=== PATIENT | male | born 1965 | race Caucasian/White ===

== ENCOUNTER 2018-03-16 16:36 | Outpatient (REF) | payer MEDICAID, SELFPAY ==
[2018-03-16 18:40] LABS: HCT 43.9 % (40.0-50.0); HGB 14.9 g/dL (13.5-17.5); Mean Corp. HGB Concentration 33.9 g/dL (32.0-36.0); Mean Corpuscular Hemoglobin 31.7 pg (27.0-33.0); Mean Corpuscular Volume 93.4 fL (80-95); Mean Platelet Volume 11.3 fL (8.0-11.0); Platelet Count 184 x1000/uL (130-400); RBC Distribution Width 13.9 % (11.8-14.1)
[2018-03-16 18:51] LABS: ALT 22 U/L (12-78); AST 33 U/L (15-37); Albumin 3.7 g/dL (3.4-5.0); Alkaline Phosphatase 68 U/L (46-116); Anion Gap 9.1 mmol/L (3-11); BUN 19 mg/dL (7-18); Bilirubin, Total 0.3 mg/dL (0.2-1.0); CO2 26.9 mmol/L (21.0-32.0); CREATININE 1.25 mg/dL (0.70-1.30); Calcium 8.9 mg/dL (8.5-10.1); Chloride 101 mmol/L (98-107); Glucose 116 mg/dL (70-100); Potassium 3.9 mmol/L (3.5-5.1); Sodium 137 mmol/L (136-145); Total Protein 7.2 g/dL (6.4-8.2)
== END 2018-03-16 16:37 ==
LOC: NCHCN 16:36
PROVIDERS: PCP Physician Assistant; Visit Provider Physician Assistant Medical
DX: F10.10 Alcohol abuse, uncomplicated (principal); G93.9 Disorder of brain, unspecified; H53.2 Diplopia
CPT/HCPCS: 80053; 85027

== ENCOUNTER 2018-04-15 15:57 | Outpatient (REF) | payer MEDICAID, SELFPAY ==
[2018-04-15 21:01] LABS: Folate 10.4 ng/mL (8.6-20.0); TSH 1.67 uIU/mL (0.358-3.74); Vitamin B12 704 pg/mL (193-986)
[2018-04-17 12:21] LABS: HIV-1/2 Ag & Ab Screen Negative (NEGAT)
== END 2018-04-15 16:17 ==
LOC: NCHCN 15:57
PROVIDERS: PCP Physician Assistant Medical; Visit Provider Physician Assistant Medical
DX: F10.10 Alcohol abuse, uncomplicated (principal); H53.2 Diplopia; Z11.4 Encounter for screening for human immunodeficiency virus [HIV]
CPT/HCPCS: 87389; 82607; 82746; 84443

== ENCOUNTER 2019-09-13 08:42 | Outpatient (REF) | payer MEDICAID, SELFPAY ==
[2019-09-13 19:48] LABS: ALT 216 U/L (16-63); AST 112 U/L (15-37); Albumin 3.9 g/dL (3.4-5.0); Alkaline Phosphatase 61 U/L (46-116); Anion Gap 7.5 mmol/L (3-11); BUN 17 mg/dL (7-18); Bilirubin, Direct 0.06 mg/dL (0.00-0.20); Bilirubin, Total 0.2 mg/dL (0.2-1.0); CO2 30.5 mmol/L (21.0-32.0); CREATININE 1.12 mg/dL (0.70-1.30); Calcium 8.9 mg/dL (8.5-10.1); Chloride 100 mmol/L (98-107); Glucose 93 mg/dL (74-106); Potassium 4.7 mmol/L (3.5-5.1); Sodium 138 mmol/L (136-145); Total Protein 7.2 g/dL (6.4-8.2)
[2019-09-13 20:25] LABS: Calculated LDL 203 mg/dL (<100); Cholesterol 291 mg/dL (<200); HDL Cholesterol 67 mg/dL (40-60); Triglyceride 106 mg/dL (<150); Vitamin B12 529 pg/mL (193-986)
== END 2019-09-13 09:02 ==
LOC: NCHCN 08:42
PROVIDERS: PCP Physician Assistant Medical; Visit Provider Nurse Practitioner Family
DX: I10 Essential (primary) hypertension (principal); Z13.220 Encounter for screening for lipoid disorders; F10.10 Alcohol abuse, uncomplicated
CPT/HCPCS: 80053; 80061; 80076; 82607

== ENCOUNTER 2020-09-08 18:41 | Outpatient (REF) | payer MEDICAID, SELFPAY | END 2020-09-08 18:42 | disposition home or self-care (01) | LOC: NCHCN 18:41 | PROVIDERS: PCP Physician Assistant Medical; Visit Provider Physician Assistant | DX: R73.09 Other abnormal glucose (principal) | CPT/HCPCS: 83036 ==

== ENCOUNTER 2023-10-02 15:02 | Outpatient (REF) | payer MEDICAID, SELFPAY ==
[2023-10-02 19:20] LABS: Uric Acid 5.2 mg/dL (3.5-7.2)
== END 2023-10-02 15:03 | disposition home or self-care (01) ==
LOC: NCHCN 15:02
PROVIDERS: PCP Physician Assistant Medical; Visit Provider Physician Assistant
DX: M25.572 Pain in left ankle and joints of left foot (principal)
CPT/HCPCS: 84550

== ENCOUNTER 2025-07-07 16:27 | Outpatient (REF) | payer MEDICAID, SELFPAY ==
[2025-07-08 17:32] LABS: PSA, Screening 0.3 ng/mL (<=4.5)
== END 2025-07-07 16:28 | disposition home or self-care (01) ==
LOC: NCHCN 16:27
PROVIDERS: PCP Physician Assistant Medical; Visit Provider Physician Assistant
DX: R63.4 Abnormal weight loss (principal)
CPT/HCPCS: 84153